=== PATIENT | female | born 1965 | race Caucasian/White ===

== ENCOUNTER 2024-09-15 19:25 | Inpatient (IN) | payer BC ==
[2024-09-15] MEDS ORDERED: Metoclopramide HCl 10 MG (2 mL) VIAL ONE (19:48)
[2024-09-15] MEDS ORDERED: Morphine 4 MG/ML VIAL ONE ×2 (19:48→20:22)
[2024-09-15 20:37] LABS: #Basophils 0.04 10x3/uL (0.0-0.2); #Eosinophils 0.01 10x3/uL (0.0-0.5); #Monocytes 0.77 10x3/uL (0.0-1.1); #Neutrophils 9.95 10x3/uL (1.5-8.4); %Basophils 0.3 % (0.0-2.0); %Eosinophils 0.1 % (0.0-6.0); %Lymphocytes 7.8 % (18.0-47.0); %Monocytes 6.6 % (0.0-10.0); %Neutrophils 84.9 % (40.0-75.0); Hemoglobin 10.1 g/dL (12.0-15.5); Mean Corpuscular HGB CONC 32.6 g/dL (32.0-36.0); Mean Corpuscular Volume 85.9 fL (81.6-98.3); Mean Platelet Volume 11.4 fL (7.4-10.4); Platelet Count 271 10x3/uL (150-450); RBC Distribution Width 13.2 % (11.5-14.5); Red Blood Cell (RBC) Count 3.61 10x6/uL (3.90-5.03); White Blood Cell (WBC) Count 11.7 10x3/uL (3.5-10.5)
[2024-09-15 20:46] LABS: INR-International Normal Ratio 1.1; PTT 29.3 sec (22.0-33.0); Prothrombin Time 11.9 sec (9.5-12.1)
[2024-09-15 20:49] LABS: ALT (SGPT) 11 U/L (8-55); AST (SGOT) 13 U/L (5-34); Albumin 3.3 g/dL (3.5-5.0); Alkaline Phosphatase 73 U/L (40-110); Anion Gap 16 mmol/L (10-20); BUN (Urea Nitrogen) 16 mg/dL (9.8-20.1); Bilirubin, Total 0.4 mg/dL (0.2-1.2); Calc. Creatinine Clearance 0 mL/min (70-130); Calcium 9.5 mg/dL (7.8-10.44); Carbon Dioxide 21 mmol/L (22-29); Chloride 105 mmol/L (98-107); Estimated GFR 87; Globulin 3.4 g/dL (2.4-3.5); Glucose 156 mg/dL (70-105); Lipase 13 U/L (8-78); Magnesium 1.8 mg/dL (1.6-2.6); Potassium 3.8 mmol/L (3.5-5.1); Protein, Total 6.7 g/dL (6.0-8.3); Sodium 138 mmol/L (136-145)
[2024-09-15 22:05] LABS: Bilirubin Neg (Negative); Blood, Urine Negative (Negative); Clarity Slightly Cloudy (Clear); Glucose, Urine (Dipstick) >=1000 mg/dL (Negative); Ketone, Urine 150 mg/dL (Negative); Leukocyte Negative (Negative); Nitrite Negative (Negative); Protein, Urine (Dipstick) Negative (Neg-Trace); Specific Gravity, Urine 1.015 (1.005-1.030); Urobilinogen Normal mg/dL (Less than 2)
[2024-09-15 22:24] LABS: Bacteria/HPF 3+ HPF (None Seen); CAUTI Indications for Culture Pelvic or flank pain; Mucous/LPF 1+ LPF (<2+); RBC/HPF None Seen HPF (0-3); Urine Culture Reflex No No; WBC/HPF 0-3 HPF (0-3)
[2024-09-16] MEDS ORDERED: cefTRIAXone (ROCEPHIN) 1 GM VIAL ONE (00:15)
[2024-09-16] MEDS ORDERED: Morphine 4 MG/ML VIAL ONE (00:47)
[2024-09-16] MEDS ORDERED: metroNIDAZOLE 500 MG (100 mL) BAG ONE (00:47)
[2024-09-16] MEDS ORDERED: Ondansetron PF 4 MG/2 ML Vial ONE (00:47)
[2024-09-16] MEDS ORDERED: metroNIDAZOLE 500 MG in Premix 1 BAG IVPB SCH (01:30)
[2024-09-16 01:36] VITALS: BMI 28.0
[2024-09-16] MEDS ORDERED: hydrALAZINE 20 MG/ML VIAL SLOW IVP PRN (01:54)
[2024-09-16 02:07] LABS: Iron 15 ug/dL (50-170); Iron Binding Capacity, Total 200 mcg/dL (265-497)
[2024-09-16] MEDS: NS 0.9% w/ 20 MEQ KCL 1,000 ML/1,000 ML BAG IV SCH (02:19)
[2024-09-16] MEDS: Magnesium Sulfate/D5W 1 GM/100 ML BAG IVPB SCH (02:19)
[2024-09-16 02:28] LABS: Ferritin 330.8 ng/mL (10-291)
[2024-09-16] MEDS: Cefepime 2 GM in Sodium Chloride 0.9% 100 ML IVPB SCH (03:24)
[2024-09-16] MEDS: Morphine 4 MG/ML VIAL SLOW IVP PRN (04:24)
[2024-09-16] MEDS: metroNIDAZOLE 500 MG in Premix 1 BAG IVPB SCH (05:37)
[2024-09-16 07:42] LABS: #Basophils 0.02 10x3/uL (0.0-0.2); #Monocytes 1.33 10x3/uL (0.0-1.1); #Neutrophils 16.87 10x3/uL (1.5-8.4); %Basophils 0.1 % (0.0-2.0); %Lymphocytes 6.7 % (18.0-47.0); %Monocytes 6.8 % (0.0-10.0); Hematocrit 31.8 % (34.9-44.5); Hemoglobin 10.4 g/dL (12.0-15.5); Mean Corpuscular HGB CONC 32.7 g/dL (32.0-36.0); Mean Corpuscular Hemoglobin 27.7 pg (27.0-33.0); Mean Corpuscular Volume 84.8 fL (81.6-98.3); Mean Platelet Volume 10.7 fL (7.4-10.4); Platelet Count 268 10x3/uL (150-450); RBC Distribution Width 13.1 % (11.5-14.5); Red Blood Cell (RBC) Count 3.75 10x6/uL (3.90-5.03); White Blood Cell (WBC) Count 19.6 10x3/uL (3.5-10.5)
[2024-09-16 07:57] LABS: Anion Gap 15 mmol/L (10-20); BUN (Urea Nitrogen) 10 mg/dL (9.8-20.1); Calc. Creatinine Clearance 122 mL/min (70-130); Calcium 9.2 mg/dL (7.8-10.44); Carbon Dioxide 21 mmol/L (22-29); Chloride 104 mmol/L (98-107); Estimated GFR 101; Glucose 142 mg/dL (70-105); Potassium 3.6 mmol/L (3.5-5.1); Sodium 136 mmol/L (136-145)
[2024-09-16] MEDS: Enoxaparin 40 MG (0.4 mL) SYRINGE SC SCH (09:02)
[2024-09-16] MEDS: Ondansetron PF 4 MG/2 ML Vial IVP PRN (09:02)
[2024-09-16] MEDS: Saccharomyces boulardii 250 MG CAP PO SCH (11:33)
[2024-09-16] MEDS: Vancomycin HCl 125 MG Capsule PO SCH (11:34)
[2024-09-16] MEDS: oxyCODONE 5 MG TAB PO PRN (11:35)
[2024-09-16] MEDS: Acetaminophen 500 MG TAB PO SCH (14:57)
[2024-09-16] MEDS: Morphine 2 MG/ML VIAL SLOW IVP PRN (15:48)
[2024-09-16 16:14] VITALS: BMI 28.0
[2024-09-16] MEDS: Aspirin 81 mg Enteric Coated Tablet PO SCH (21:22)
[2024-09-16] MEDS: Famotidine 20 MG TAB PO SCH (21:22)
[2024-09-16 23:22] LABS: Campy jejuni + coli by PCR Negative (Negative); STEC Shiga Toxin 1+2 Negative (Negative); Salmonella spp. by PCR Negative (Negative); Shigella spp + EIEC by PCR Negative (Negative)
[2024-09-17 04:18] LABS: #Basophils 0.03 10x3/uL (0.0-0.2); #Eosinophils 0.05 10x3/uL (0.0-0.5); #Neutrophils 15.83 10x3/uL (1.5-8.4); %Basophils 0.2 % (0.0-2.0); %Eosinophils 0.3 % (0.0-6.0); %Lymphocytes 8.9 % (18.0-47.0); %Monocytes 6.8 % (0.0-10.0); %Neutrophils 83.3 % (40.0-75.0); Hematocrit 28.7 % (34.9-44.5); Hemoglobin 9.3 g/dL (12.0-15.5); Mean Corpuscular HGB CONC 32.4 g/dL (32.0-36.0); Mean Corpuscular Hemoglobin 27.8 pg (27.0-33.0); Mean Corpuscular Volume 85.7 fL (81.6-98.3); Platelet Count 243 10x3/uL (150-450); RBC Distribution Width 13.1 % (11.5-14.5); Red Blood Cell (RBC) Count 3.35 10x6/uL (3.90-5.03)
[2024-09-17 04:30] LABS: Anion Gap 14 mmol/L (10-20); BUN (Urea Nitrogen) 6 mg/dL (9.8-20.1); Calc. Creatinine Clearance 144 mL/min (70-130); Calcium 8.9 mg/dL (7.8-10.44); Carbon Dioxide 20 mmol/L (22-29); Chloride 109 mmol/L (98-107); Estimated GFR 105; Glucose 116 mg/dL (70-105); Potassium 3.8 mmol/L (3.5-5.1); Sodium 139 mmol/L (136-145)
[2024-09-17] MEDS ORDERED: Cefepime 2 GM in Sodium Chloride 0.9% 100 ML IVPB SCH ×2 (08:00→14:00)
[2024-09-17] MEDS ORDERED: Polyethylene Glycol 3350 17 GM Packet PO SCH (09:00)
[2024-09-17] MEDS: Saccharomyces boulardii 250 MG CAP PO SCH (09:01)
[2024-09-17] MEDS: Amlodipine 10 MG TAB PO SCH (09:01)
[2024-09-17] MEDS: Furosemide 20 MG TAB PO SCH (09:01)
[2024-09-17] MEDS: FLUoxetine HCl 20 MG CAP PO SCH (09:01)
[2024-09-17] MEDS: Lisinopril 20 MG TAB PO SCH (09:02)
[2024-09-17] MEDS: Propranolol HCl 20 MG TAB PO SCH (09:02)
[2024-09-17] MEDS: Ciprofloxacin Lactate/D5W 400 MG in Premix 1 BAG IVPB SCH (10:52)
[2024-09-17] MEDS: Simethicone Chewable 80 MG TAB PO PRN (10:57)
[2024-09-18 04:02] LABS: #Basophils 0.02 10x3/uL (0.0-0.2); #Eosinophils 0.14 10x3/uL (0.0-0.5); #Monocytes 0.98 10x3/uL (0.0-1.1); #Neutrophils 11.19 10x3/uL (1.5-8.4); %Basophils 0.1 % (0.0-2.0); %Lymphocytes 12.6 % (18.0-47.0); %Monocytes 6.9 % (0.0-10.0); %Neutrophils 78.7 % (40.0-75.0); Hematocrit 29.7 % (34.9-44.5); Hemoglobin 9.3 g/dL (12.0-15.5); Mean Corpuscular HGB CONC 31.3 g/dL (32.0-36.0); Mean Corpuscular Hemoglobin 27.4 pg (27.0-33.0); Mean Corpuscular Volume 87.4 fL (81.6-98.3); Mean Platelet Volume 11.3 fL (7.4-10.4); Platelet Count 235 10x3/uL (150-450); RBC Distribution Width 13.2 % (11.5-14.5); White Blood Cell (WBC) Count 14.2 10x3/uL (3.5-10.5)
[2024-09-18 04:21] LABS: Anion Gap 15 mmol/L (10-20); BUN (Urea Nitrogen) 5 mg/dL (9.8-20.1); Calc. Creatinine Clearance 134 mL/min (70-130); Calcium 8.7 mg/dL (7.8-10.44); Carbon Dioxide 21 mmol/L (22-29); Chloride 108 mmol/L (98-107); Estimated GFR 103; Glucose 95 mg/dL (70-105); Potassium 3.5 mmol/L (3.5-5.1); Sodium 140 mmol/L (136-145)
[2024-09-18] MEDS: Ciprofloxacin 500 MG TAB PO SCH ×2 (10:32→20:40)
[2024-09-18] MEDS: Sodium Chloride 0.9% 1,000 ML IV SCH (14:07)
[2024-09-19 03:29] LABS: #Basophils 0.03 10x3/uL (0.0-0.2); #Eosinophils 0.16 10x3/uL (0.0-0.5); #Monocytes 0.63 10x3/uL (0.0-1.1); #Neutrophils 6.17 10x3/uL (1.5-8.4); %Basophils 0.3 % (0.0-2.0); %Eosinophils 1.8 % (0.0-6.0); %Lymphocytes 22.7 % (18.0-47.0); %Monocytes 6.9 % (0.0-10.0); %Neutrophils 67.8 % (40.0-75.0); Hematocrit 29.9 % (34.9-44.5); Hemoglobin 9.4 g/dL (12.0-15.5); Mean Corpuscular HGB CONC 31.4 g/dL (32.0-36.0); Mean Corpuscular Hemoglobin 27.4 pg (27.0-33.0); Mean Corpuscular Volume 87.2 fL (81.6-98.3); Mean Platelet Volume 10.8 fL (7.4-10.4); Platelet Count 224 10x3/uL (150-450); RBC Distribution Width 13.2 % (11.5-14.5); Red Blood Cell (RBC) Count 3.43 10x6/uL (3.90-5.03); White Blood Cell (WBC) Count 9.1 10x3/uL (3.5-10.5)
[2024-09-19 03:53] LABS: Anion Gap 12 mmol/L (10-20); BUN (Urea Nitrogen) 5 mg/dL (9.8-20.1); Calc. Creatinine Clearance 130 mL/min (70-130); Carbon Dioxide 25 mmol/L (22-29); Chloride 107 mmol/L (98-107); Estimated GFR 102; Glucose 118 mg/dL (70-105); Potassium 3.2 mmol/L (3.5-5.1); Sodium 141 mmol/L (136-145)
[2024-09-19] MEDS: Potassium Chloride 20 MEQ TAB PO SCH (10:12)
[2024-09-19 12:53] VITALS: BP 114/66; TEMP 99.4
== END 2024-09-19 14:38 | disposition still patient (30) | DRG 392 ==
LOC: CSHERS 19:25 → CSHTELE 09-16 00:29
PROVIDERS: ADMIT Family Medicine; ATTEND Internal Medicine
DX: K52.9 Noninfective gastroenteritis and colitis, unspecified (principal); M86.8X5 Other osteomyelitis, thigh; T84.52XA Infection and inflammatory reaction due to internal left hip prosthesis, initial encounter; I10 Essential (primary) hypertension; Z96.652 Presence of left artificial knee joint; D64.9 Anemia, unspecified; R73.9 Hyperglycemia, unspecified; D50.9 Iron deficiency anemia, unspecified; D72.829 Elevated white blood cell count, unspecified; Z98.890 Other specified postprocedural states; Z79.899 Other long term (current) drug therapy; Z90.49 Acquired absence of other specified parts of digestive tract; Z87.891 Personal history of nicotine dependence
CPT/HCPCS: 36415; 74177; 80048; 80053; 81001; 82274; 82607; 82728; 83540; 83550; 83690; 83735; 85025; 85610; 85730; 87040; 87177; 87324; 87449; 87505; 97139; J0692; J0696; J0744; J0878; J1650; J2272; J2405; J2765; J3475; J3480; J7030